=== PATIENT | male | born 1960 | race Caucasian/White ===

== ENCOUNTER → 2018-01-01 | Outpatient (CLI) | payer BC | END | disposition home or self-care (01) | LOC: LABWHC1 06:35 | PROVIDERS: ATTEND Surgery Plastic and Reconstructive Surgery | DX: I10 Essential (primary) hypertension (principal) | CPT/HCPCS: 36415; 93005 ==

== ENCOUNTER → 2018-01-24 | Day surgery (SDC) | payer BC ==
[2018-01-14 15:13] VITALS: BMI 27.7
[~2018-01-24] MED LIST: BUPIVACAIN-EPI 0.5%-1:200,000 30 ML VIAL SQ ONE; DEXAMETHASONE SOD PHOSPHATE 10 MG/ML 1 ML VIAL IV ONE; ENALAPRILAT 1.25 MG/ML 1 ML VIAL IVP ONE; ESMOLOL 100 MG/10 ML VIAL ONE; GLYCOPYRROLATE 0.2 MG/ML 2 ML VIAL ONE; HEPARIN SODIUM,PORCINE 5,000 UNIT/ML 1 ML VIAL SQ ONE; HYDROcodone/APAP 5-325MG 1 EACH TAB PO ONE; HYDROmorphone (PF) 1 MG/ML ONE; LACTATED RINGERS 1,000 ML IV ONE; LACTATED RINGERS 1,000 ML IV SCH; LIDOCAINE 1% 20 ML VIAL (10MG/ML) FOR IV START INTRADERMA ONE; LIDOCAINE 1% INJ 10MG/ML (20 ML MDV) ONE; MIDAZOLAM 2 MG/2 ML VIAL IV PRN; MIDAZOLAM 2 MG/2 ML VIAL ONE; NEOSTIGMINE 1 MG/ML 10 ML VIAL ONE; PROPOFOL 10 MG/ML 20 ML VIAL IV ONE; ROCURONIUM BROMIDE 10 MG/ML 10 ML VIAL IV ONE; SCOPOLAMINE 1.5MG/72HR PATCH TRANSDERM ONE; SODIUM CHLORIDE 0.9% 1,000 ML IV ONE; SUCCINYLCHOLINE CHLORIDE 100 MG/5 ML SYR IV ONE; ceFAZolin IN SWFI 2 GM/20 ML SYRINGE IVP ONE; fentaNYL (PF) 50 MCG/ML 2 ML AMP IV PRN; fentaNYL (PF) 50 MCG/ML 2 ML AMP ONE
[2018-01-24 06:15] VITALS: TEMP 98.2
--- NOTE | 2018-01-24 06:21 | P.GSHP ---
History of Present Illness H&P Date: 01/24/18 CHIEF COMPLAINT: Ventral hernia HISTORY OF PRESENT ILLNESS: The patient is a 57-year-old male who presents with a history of swelling and pain along the abdomen from a hernia. Now he presents for surgical intervention. PAST MEDICAL HISTORY: Please see list. PAST SURGICAL HISTORY: Please see list. MEDICATIONS: Please see list. ALLERGIES: Please see list. SOCIAL HISTORY: No illicit drug use FAMILY HISTORY: No reports of Crohn disease or ulcerative colitis. REVIEW OF ORGAN SYSTEMS: CONSTITUTIONAL: No reports of fevers or chills. No reports of weight loss despite prior attempts. GI: Denies any blood in stools or constipation. PHYSICAL EXAM: VITAL SIGNS: Stable GENERAL: Well-developed pleasant in no acute distress. HEENT: No scleral icterus. Extraocular movements grossly intact. Moist buccal mucosa. NECK: Supple without lymphadenopathy. CHEST: Unlabored respirations. Equal bilateral excursions. CARDIOVASCULAR: Regular rate and rhythm. Distal 2+ pulses. ABDOMEN: Soft, nondistended. Palpable defect of the abdomen. No peritoneal signs. MUSCULOSKELETAL: No clubbing, cyanosis, or edema. ASSESSMENT: 1. Umbilical ventral hernia PLAN: 1. Recommend proceeding with a robotic ventral hernia repair with mesh. 2. Benefits and risks of surgical intervention was discussed including possibility of open technique. 3. DVT prophylaxis. 4. Antibiotic prophylaxis. Past Medical History Past Medical History: Hyperlipidemia, Hypertension History of Any Multi-Drug Resistant Organisms: None Reported Past Surgical History: Orthopedic Surgery Additional Past Surgical History / Comment(s): bilateral hand surgery. back surgery Past Anesthesia/Blood Transfusion Reactions: No Reported Reaction Past Psychological History: No Psychological Hx Reported Smoking Status: Never smoker Past Alcohol Use History: Occasional Past Drug Use History: None Reported - Past Family History Father Family Medical History: Coronary Artery Disease (CAD), Myocardial Infarction ([place] ) Medications and Allergies Home Medications Medication Instructions Recorded Confirmed Type Hydrocodone/Acetaminophen [[place] 1 each PO Q4HR PRN #30 tab 07/14/14 01/24/18 Rx 5-325] Atorvastatin [Lipitor] 20 mg PO DAILY 01/14/18 01/24/18 History Losartan/Hydrochlorothiazide 1 each PO DAILY 01/14/18 01/24/18 History [Losartan-Hctz 100-25 mg Tab] amLODIPine [Norvasc] 5 mg PO DAILY 01/14/18 01/24/18 History Allergies Allergy/AdvReac Type Severity Reaction Status Date / Time egg Allergy Unknown Verified 01/24/18 06:12 Penicillins Allergy Unknown Verified 01/24/18 06:12 Surgical - Exam Vital Signs Temp Pulse Resp BP Pulse Ox 98.2 F 85 16 152/93 97 01/24/18 06:13 01/24/18 06:13 01/24/18 06:13 01/24/18 06:13 01/24/18 06:13
[2018-01-24] MEDS: ONDANSETRON 4 MG/2 ML VIAL IVP ONE ×2 (06:38→09:19)
--- NOTE | 2018-01-24 08:32 | P.OP ---
Date of Procedure: 01/24/18 Description of Procedure: SURGEON: SUNDEEP DOSS MD PREOPERATIVE DIAGNOSES: 1. Initial umbilical hernia 2. Hypertension 3. Hyperlipidemia POSTOPERATIVE DIAGNOSES: 1. Initial umbilical incarcerated, 2 cm 2. Hypertension 3. Hyperlipidemia OPERATION: 1. Robotic-assisted da Dov Xi laparoscopic repair of initial incarcerated ventral hernia 2 cm without mesh ANESTHESIA: General with local ESTIMATED BLOOD LOSS: 5 mL. SPECIMENS: None. COMPLICATIONS: None. INDICATIONS: The patient is a 57-year-old male who presents with initial umbilical hernia. Surgical intervention with laparoscopic versus robotic and open techniques were reviewed. Possibility of mesh placement was described. Benefits and risks were thoroughly described. Informed consent was obtained. DESCRIPTION OF PROCEDURE: The patient was brought into the operating room and laid in supine position. After general induction, the abdomen had been prepped and draped in standard sterile fashion. Ioban draping was also placed. Prior to incision, a timeout protocol was confirmed with surgical team regarding the patient's name including procedures to be performed. The robot was primed prior to the procedure. A field block using local anesthetic was placed along hernia site including the proposed port sites. Initial incision was made with an #11 blade along the left upper quadrant. A 0 degree 5 mm laparoscopic trocar entry was performed. Diagnostic laparoscopy demonstrated an incarcerated ventral hernia of the epigastrium. A 8 mm trocar was placed along the left lateral abdominal wall approximately 10 cm lateral to the lower midline. An 8 mm port was placed along the left lower quadrant under direct localization. The 5-mm port was exchanged for an 8 mm robotic port. Placements of the ports were 12 cm from the target anatomy and 8 cm apart. The da Dov Xi robot was previously primed, prepped and draped then docked along the left side of the patient. I then sat at the robot Da Dov Xi console where working arms of the robot were scissors, needle stake driver, and graspers placed by the entry level marketing assistant. Fascial defect of 2 cm was identified. Attention was brought to the umbilicus where an incarcerated ventral hernia was identified also containing fat. The incarcerated contents was reduced as the peritoneal fat was cleaned from the abdominal wall. Next, hemostasis was checked with cautery. The hernia defect of 2-cm was oversewn using #1 Stratafix with fascial imbrication 3. A final endoscopic imaging was obtained. All instruments and pneumoperitoneum were evacuated from the abdominal cavity. The da Dov Xi robot was undocked from the patient. I re-scrubbed into the case for closure of incisions. The incisions were reapproximated using 4-0 Monocryl in an interrupted subcuticular fashion. Exofin liquid glue was applied to the skin after cleansing the skin with normal saline and dilute hydrogen peroxide. An abdominal binder was placed. At the end of the procedure, needle, sponge, and instrument count had been verified correct by surgical appliances salesperson. The patient was taken to the postanesthesia care unit in stable condition. FINDINGS: 1. Intial incarcerated umbilical hernia epigastrium, 2cm Plan - Discharge Summary Discharge Rx Participant: Yes New Discharge Prescriptions: No Action Hydrocodone/Acetaminophen [[place] 5-325] 1 each PO Q4HR PRN #30 tab PRN Reason: Pain amLODIPine [Norvasc] 5 mg PO DAILY Losartan/Hydrochlorothiazide [Losartan-Hctz 100-25 mg Tab] 1 each PO DAILY Atorvastatin [Lipitor] 20 mg PO DAILY Discharge Medication List Hydrocodone/Acetaminophen [[place] 5-325] 1 each PO Q4HR PRN #30 tab 07/14/14 [Rx] Atorvastatin [Lipitor] 20 mg PO DAILY 01/14/18 [History] Losartan/Hydrochlorothiazide [Losartan-Hctz 100-25 mg Tab] 1 each PO DAILY 01/14 [History] amLODIPine [Norvasc] 5 mg PO DAILY 01/14/18 [History]
[2018-01-24] MEDS: HYDROmorphone 1 MG/ML 1 ML SYRINGE IVP ONE ×4 (08:51→09:15)
[2018-01-24 11:36] VITALS: BP 124/74; PULSE 71; RESP 18
== END | disposition home or self-care (01) ==
LOC: OR 05:34
PROVIDERS: ATTEND Surgery Plastic and Reconstructive Surgery
DX: K42.0 Umbilical hernia with obstruction, without gangrene (principal); I11.9 Hypertensive heart disease without heart failure; E78.5 Hyperlipidemia, unspecified; Z82.49 Family history of ischemic heart disease and other diseases of the circulatory system; Z79.899 Other long term (current) drug therapy; Z88.0 Allergy status to penicillin; Z91.012 Allergy to eggs
CPT/HCPCS: 49653; J2250; J1644; J1100; J2710; J2405; J2001; J3010; J1170; J0330; J2704; J0690

== ENCOUNTER 2019-09-07 09:30 | Inpatient (IN) | payer BC, OTHER ==
[2019-09-07] MEDS ORDERED: HYDROcodone/APAP 5-325MG 1 EACH TAB PO PRN (11:37)
[2019-09-07] MEDS ORDERED: IBUPROFEN 600 MG TAB PO PRN (11:37)
--- NOTE | 2019-09-07 14:47 | P.HPOR ---
<Julio César Myrick - Last Filed: 09/07/19 14:40> History of Present Illness H&P Date: 09/07/19 Chief Complaint: Thoracic back pain and left shoulder pain status post fall down steps Patient is a pleasant 59-year-old male who is seen and examined at bedside for further evaluation regards to his known T7 and T8 compression fracture deformities. Patient states he cannot use the restroom and approximately 5:00 this morning when he was somewhat disoriented as he was not well awake and fell down his steps while attempting to go back to his bedroom. He states he tried to grab the railing and he fell landing on his thoracic spine. He has had some left shoulder pain since that time. He has a small abrasion to his left hand as well. He is taking [facility] for further evaluation. Imaging their reports compression fracture deformities at T7 and T8. He was transferred to [facility] for further treatment and evaluation. Patient states imaging taken at his left shoulder did not show evidence of fracture or dislocation. He is having difficulty with active range of motion of his left shoulder. He is able to perform all other regular range of motion of left upper extremity without difficulty. He has significant pain in his thoracic spine. He has remained in bed since his transfer in to [facility]. He states his thoracic pain is exacerbated with any movement of his thoracic spine. He denies any lower extremity weakness or radiculopathy bilaterally. He has active full range of motion bilateral lower extremities. Patient does admit to lumbar laminectomy years ago. Imaging has not yet been loaded into the synapse system from [facility]. Patient is having some difficulty with pain control. Past Medical History Past Medical History: Hyperlipidemia, Hypertension History of Any Multi-Drug Resistant Organisms: None Reported Past Surgical History: Orthopedic Surgery Additional Past Surgical History / Comment(s): bilateral hand surgery. back surgery Past Anesthesia/Blood Transfusion Reactions: No Reported Reaction Past Psychological History: No Psychological Hx Reported Smoking Status: Never smoker Past Alcohol Use History: Occasional Past Drug Use History: None Reported - Past Family History Father Family Medical History: Coronary Artery Disease (CAD), Myocardial Infarction ([place]) Medications and Allergies Home Medications Medication Instructions Recorded Confirmed Type Losartan/Hydrochlorothiazide 0.5 tab PO DAILY 01/14/18 09/07/19 History [Losartan-Hctz 100-25 mg Tab] Loratadine-Pseudoeph 10-240 mg 1 tab PO DAILY PRN 09/07/19 09/07/19 History [Claritin-D 24 Hour] Allergies Allergy/AdvReac Type Severity Reaction Status Date / Time egg Allergy Unknown Verified 09/07/19 12:00 Penicillins Allergy Unknown Verified 09/07/19 12:00 Physical Examination Physical exam: Patient is awake, alert, and oriented 3 Vital signs stable Good chest excursion with deep inspiration and expiration Examination of thoracic and lumbar spine reveals skin is intact with no abrasions, lacerations, or bruises; no erythema, purulence or signs of infection Significant pain with palpation along the midline of the mid to lower thoracic spine Evidence of a what feels to be a palpable step-off deformity at the mid thoracic spine Dorsiflexion, plantarflexion, and extensor hallucis longus positive sustained bilaterally Lower extremity strength 5/5 bilaterally Straight leg test negative bilateral lower extremities Negative Lasegue's test bilaterally No signs or symptoms of DVT; no calf pain No pain with internal and external rotation of the hips bilaterally Neurovascularly intact Evidence of a small wound/abrasion over the metacarpal phalangeal joint of the posterior pinky finger Inspection of the left shoulder does not show any significant erythema, bruising, laceration, swelling, or obvious sign of infection at the left shoulder Significant difficulty with active range of motion of left shoulder Pain with palpation over the anterior and posterior aspects of the left shoulder Full active range of motion of the left elbow with flexion and extension without difficulty Assessment and Plan Assessment: Assessment: Acute traumatic T7 and T8 compression fracture deformities Status post fall Intractable thoracic back pain Left shoulder pain Left shoulder weakness and difficulty with range of motion of the left shoulder Small wound/abrasion over the left metacarpal phalangeal joint of the left pinky finger (1) T8 vertebral fracture Current Visit: Yes Status: Acute Code(s): S22.069A - UNSP FRACTURE OF T7-T8 VERTEBRA, INIT FOR CLOS FX SNOMED Code(s): 126062624 (2) T7 vertebral fracture Current Visit: Yes Status: Acute Code(s): S22.069A - UNSP FRACTURE OF T7-T8 VERTEBRA, INIT FOR CLOS FX SNOMED Code(s): 193130618 (3) Status post fall Current Visit: Yes Status: Acute Code(s): Z91.81 - HISTORY OF FALLING SNOMED Code(s): 961481506 (4) Left shoulder pain Current Visit: Yes Status: Acute Code(s): M25.512 - PAIN IN LEFT SHOULDER SNOMED Code(s): 12869493 (5) Abrasion of left hand Current Visit: Yes Status: Acute Code(s): S60.512A - ABRASION OF LEFT HAND, INITIAL ENCOUNTER SNOMED Code(s): 626123889 (6) Weakness of shoulder Current Visit: Yes Status: Acute Code(s): R29.898 - OTH SYMPTOMS AND SIGNS INVOLVING THE MUSCULOSKELETAL SYSTEM SNOMED Code(s): 967198687 Plan: Plan: 1. After reviewing of imaging, physical examination the patient, and further discussion with the patient, will currently planned to continue with conservative treatment at this time. At this time we'll plan for bracing. A prescription has been written and provided to case management for a [place] TLSO brace. Once this brace is delivered and fitted appropriately, patient should wear this brace while sitting upright at greater than 45, during increase activities, during ambulation. Brace does not have to worn while lying in bed or while bathing. Following fitting of this brace, patient is clear for discharge from an orthopedic spine standpoint. We will continue to monitor his level of pain control and once patient's pain is better controlled we'll plan for discharge home. Following discharge, patient may follow-up with Julio César Myrick PA-C or Dr. Brandon Ann at [facility]. We will continue following the patient closely. 2. Continue medications for pain control as prescribed. [place] has been increased to [place] 5 mg/325 mg 1-2 tabs every 4 hours as needed for pain. 3. We are also currently planning to have imaging uploaded in the [employer] system here at [facility] for further evaluation. 4. We will also plan to obtain x-rays of the thoracic spine in an upright position once the patient's [place] TLSO brace is delivered and fitted properly. 5. Consultation has been placed with Dr. Perez for medical management during his admission Time with Patient: Greater than 30 (Including obtaining history, physical examination, reviewing of imaging, and dictation.) <Maria Luisa Ann - Last Filed: 09/07/19 17:43> Physical Examination Osteopathic Statement: *. No significant issues noted on an osteopathic structural exam other than those noted in the History and Physical/Consult. Assessment and Plan Plan: I have reviewed the case above and reviewed the dictation above. The computed tomography scan from [facility] is still not available for viewing. Jason Terry Huron. The house staff is working on making the films available for us to review. We'll have further discussion based on those images when we were able to see them.
[2019-09-07] MEDS ORDERED: KETOROLAC 30 MG/ML 1 ML VIAL IVP PRN (15:42)
[2019-09-07] MEDS ORDERED: KETOROLAC 30 MG/ML 1 ML VIAL IVP STA (15:42)
[2019-09-07] MEDS: HYDROcodone/APAP 5-325MG 1 EACH TAB PO PRN ×2 (17:38→21:58)
[2019-09-07] MEDS ORDERED: HYDROmorphone 0.5 MG/0.5 ML SYRINGE IVP PRN (17:43)
[2019-09-07] MEDS ORDERED: HYDROmorphone 1 MG/ML 1 ML SYRINGE IVP PRN (17:43)
[2019-09-07] MEDS ORDERED: LORATADINE-PSEUDOEPH 5-120 MG 1 EACH TAB.ER.12H PO PRN (17:45)
--- NOTE | 2019-09-07 22:58 | P.CONS ---
History of Present Illness - Reason for Consult Consult date: 09/07/19 HTN, HLD - Chief Complaint Traumatic T7-T8 fracture - History of Present Illness Patient is a 59-year-old male with a known history of hypertension, hyperlipidemia was initially presented to outpatient Hospital facility status post fall. Patient says that he woke up around 5 AM this morning and was turning towards the bathroom and stepped down on the staircase. Patient fell on the steps and rolled down to the floor. Patient tried to grab the railing while he was falling. since then he has been having he has been having upper back pain and left shoulder pain and unable to move his shoulder and unable to walk by himself. Patient presented to outside hospital facility where he had CT of the spine showed compression fractures of T7 and T8. Patient was transferred to [facility] for further evaluation by orthopedic surgery. Patient is still complaining of left shoulder pain and unable to get up from the bed. Requesting pain medications. Otherwise patient denied any complaints of chest pain or shortness of breath. Patient says that he did have difficulty in breathing after he fell down from states but later improved now. No recent illnesses. Denied any dysuria or hematuria. No fever no chills. No cough or sputum production. Denied any complaints of abdominal pain. Review of Systems Constitutional: Patient denies any fever or chills . No generalized weakness or weight loss. Abdomen: Patient denied nausea vomiting and diarrhea and abdominal pain. Cardiovascular: Patient denies any chest pain or short of breath no palpitations. Respiratory: patient denied any cough is from production. No shortness of breath Neurologic: Patient denied any numbness or tingling headache. Musculoskeletal: Patient denies any complaints of joint swelling or deformity. Patient does have left shoulder pain and upper back pain Skin: Negative Psychiatric: Negative Endocrine: No heat or cold intolerance. No recent weight gain. Genitourinary: No dysuria or hematuria. All other 14 point ROS negative except the above Past Medical History Past Medical History: Hyperlipidemia, Hypertension History of Any Multi-Drug Resistant Organisms: None Reported Past Surgical History: Orthopedic Surgery Additional Past Surgical History / Comment(s): bilateral hand surgery. back surgery Past Anesthesia/Blood Transfusion Reactions: No Reported Reaction Past Psychological History: No Psychological Hx Reported Smoking Status: Never smoker Past Alcohol Use History: Occasional Past Drug Use History: None Reported - Past Family History Father Family Medical History: Coronary Artery Disease (CAD), Myocardial Infarction ( [place]) Medications and Allergies Home Medications Medication Instructions Recorded Confirmed Type Losartan/Hydrochlorothiazide 0.5 tab PO DAILY 01/14/18 09/07/19 History [Losartan-Hctz 100-25 mg Tab] Loratadine-Pseudoeph 10-240 mg 1 tab PO DAILY PRN 09/07/19 09/07/19 History [Claritin-D 24 Hour] Allergies Allergy/AdvReac Type Severity Reaction Status Date / Time egg Allergy Unknown Verified 09/07/19 12:00 Penicillins Allergy Unknown Verified 09/07/19 12:00 Physical Exam Vitals: Vital Signs Temp Pulse Resp BP Pulse Ox 09/07/19 11:12 98.1 F 97 16 141/89 96 Intake and Output 09/06/19 09/07/19 09/07/19 22:59 06:59 14:59 Other: Weight 91.138 kg PHYSICAL EXAMINATION: Patient is lying in the bed comfortably, no acute distress, awake alert and oriented.. HEENT: Normocephalic. Neck is supple. Pupils reactive. Nostrils clear. Oral cavity is moist. Ears reveal no drainage. Neck reveals no JVD, carotid bruits, or thyromegaly. CHEST EXAMINATION: Trachea is central. Symmetrical expansion. Bibasilar diminished air entry. Lung webb clear to auscultation and percussion. CARDIAC: Normal S1, S2 with no gallops. No murmurs ABDOMEN: Soft. Bowel sounds normal. No organomegaly. No abdominal bruits. Extremities: reveal no edema. No clubbing or cyanosis Neurologically awake, alert, oriented x3 with well-coordinated movements. No focal deficits noted Skin: No rash or skin lesions. Psychiatric: Coperative. Nonsuicidal Musculoskeletal: No joint swelling or deformity. There is decreased range of motion of left shoulder and patient is unable to get up from the bed. Upper back pain and paraspinal spasms... Assessment and Plan Assessment: Acute compression fracture of T7 and T8 status post mechanical fall. Left shoulder pain and decreased range of motion. Thoracic back pain Hypertension controlled now Hyperlipidemia DVT prophylaxis Plan: Patient will be continued on pain medications the form of [place] and was given a dose of IV Toradol. Blood pressure is controlled now. Patient does take losartan/hydrochlorothiazide at home which will be on hold. Orthopedic surgery is on board. We will continue to follow with you and further recommendations based on the clinical course. Follow-up CBC and BMP. Thank you for your consult. Time with Patient: Greater than 30
[2019-09-08] MEDS: HYDROcodone/APAP 5-325MG 1 EACH TAB PO PRN ×3 (02:34→11:45)
[2019-09-08 07:27] LABS: Basophils # (A) 0.1 k/uL (0-0.2); Basophils % (A) 1 %; Eosinophils # (A) 0.1 k/uL (0-0.7); Eosinophils % (A) 1 %; HCT 42.1 % (39.0-53.0); HGB 13.3 gm/dL (13.0-17.5); Lymphocytes # (A) 1.9 k/uL (1.0-4.8); Lymphocytes % (A) 19 %; MCH 30.4 pg (25.0-35.0); MCHC 31.5 g/dL (31.0-37.0); MCV 96.3 fL (80.0-100.0); Mean Platelet Volume 7.1; Monocytes # (A) 0.6 k/uL (0-1.0); Monocytes % (A) 6 %; Neutrophils # (A) 7.3 k/uL (1.3-7.7); Neutrophils % (A) 73 %; Platelet Count 239 k/uL (150-450); RBC 4.37 m/uL (4.30-5.90); WBC 10.1 k/uL (3.8-10.6)
[2019-09-08 07:43] LABS: African American GFR (CKD) >90 (>60 ml/min/1.73 sqM); Anion Gap 8 mmol/L; Blood Urea Nitrogen 16 mg/dL (9-20); Calcium 8.9 mg/dL (8.4-10.2); Carbon Dioxide 26 mmol/L (22-30); Chloride 103 mmol/L (98-107); Glucose 104 mg/dL (74-99); Non-African American GFR(CKD) >90 (>60 ml/min/1.73 sqM); Potassium 4.3 mmol/L (3.5-5.1); Sodium 137 mmol/L (137-145)
[2019-09-08 08:46] VITALS: BP 158/100; PULSE 84; RESP 18; TEMP 97.8
[2019-09-08] MEDS ORDERED: LOSARTAN-HCTZ 50-12.5 MG 1 EACH TAB PO SCH (09:00)
--- NOTE | 2019-09-08 10:40 | XR ---
EXAMINATION TYPE: XR thoracic spine complete DATE OF EXAM: 09/08/2019 CLINICAL HISTORY: Back pain with T7 and T8 fractures. TECHNIQUE: Frontal, lateral, and swimmer's view of thoracic spine are obtained. COMPARISON: Outside CT from yesterday. FINDINGS: There is persistent dextroconvex scoliosis centered roughly T7-T8 level. There are acute co mminuted fractures involving the T6-T8 vertebra with most prominent fracture through the T7 vertebra vertically causing mild to moderate height loss even more prominent than identified on CT. No signifi cant posterior retropulsion identified on plain films which correlates with CT. Incidental moderate spurring and disc space narrowing C4-C5 through C6-C7 levels. Visualized ribs are grossly intact. IMPRESSION: Acute comminuted fractures involving the T6 through the T8 vertebra with mild to moderate height loss T7 vertebra. No significant posterior retropulsion seen.
--- NOTE | 2019-09-08 12:42 | P.DS ---
Providers Date of admission: 09/07/19 11:04 Expected date of discharge: 09/08/19 Attending physician: Maria Luisa Ann Consults: 09/07/19 11:37 Consult Physician Routine Consulting Provider: Jose Perez Consult Reason/Comments: medical management Do you want consulting provider notified?: Yes Primary care physician: Vick Givens - Discharge Diagnosis(es) (1) T8 vertebral fracture Current Visit: Yes Status: Acute (2) T7 vertebral fracture Current Visit: Yes Status: Acute (3) Status post fall Current Visit: Yes Status: Acute (4) Left shoulder pain Current Visit: Yes Status: Acute (5) Abrasion of left hand Current Visit: Yes Status: Acute (6) Weakness of shoulder Current Visit: Yes Status: Acute (7) Hyperlipidemia Current Visit: Yes Status: Acute (8) Hypertension Current Visit: Yes Status: Acute Hospital Course: This is a pleasant 59-year-old male who presented with acute traumatic T7 and T8 fractures who was transferred in from [facility]. He was experiencing severe debilitating thoracic back pain at the time of presentation. He has been fitted with a [place] TLSO brace. Since that time his pain has been better controlled. He continues to deny lower extremity weakness or radiculopathy bilaterally. X-rays of the thoracic spine were taken with his brace intact which do confirm comminuted fractures at T7 and T8 and may be some involvement of T6. He does continue to have some pain and weakness at the left shoulder. He states he does not feel he needs a sling or further evaluation of the shoulder at this time. He states x-ray imaging taken of the left shoulder at length her [facility] was negative for significant findings. He feels he is ready for discharge home today. He is eating and voiding without difficulty. Condition on day of discharge stable. Patient will be discharged home. Patient currently denies any nausea, vomiting, fever, or chills. We discussed he should continue to wear his [place] TLSO brace for comfort and support while sitting upright at greater than 45, during increase activities, and while ambulating; patient does not have to wear the brace while lying in bed or bathing. Patient should avoid excessive bending, twisting, and lifting; no lifting greater than 10 pounds. Patient will continue conservative treatment regards to his left shoulder. He should avoid excessive lifting and activities of the left shoulder. We discussed that symptoms are not improving at this follow-up appointment with me plan to obtain further imaging of the left shoulder at that time. He may continue with dressing changes as needed over the wound to the left metacarpal phalangeal joint of the pinky. Patient should refrain from driving until at least after their first follow-up appointment in the office. MAPS has been reviewed today, 09/08/2019, with an Overall Overdose Risk Score of 340. An "Opiod Start Talking" Form has been signed by the patient and myself in place in the patient's chart. A prescription has been written for Mikado 5 mg/325 mg 1-2 tabs every 6 hours as needed for pain, dispensed #56. Patient may resume other previously prescribed home medications. Physical exam: Patient is awake, alert, and oriented 3 Vital signs stable Good chest excursion with deep inspiration and expiration Examination of thoracic and lumbar spine reveals skin is intact with no abrasions, lacerations, or bruises; no erythema, purulence or signs of infection Significant pain with palpation along the midline of the mid to lower thoracic spine Sonal TLSO brace intact Evidence of a what feels to be a palpable step-off deformity at the mid thoracic spine Dorsiflexion, plantarflexion, and extensor hallucis longus positive sustained bilaterally Lower extremity strength 5/5 bilaterally Straight leg test negative bilateral lower extremities Negative Lasegue's test bilaterally No signs or symptoms of DVT; no calf pain No pain with internal and external rotation of the hips bilaterally Neurovascularly intact Evidence of a small wound/abrasion over the metacarpal phalangeal joint of the posterior pinky finger Inspection of the left shoulder does not show any significant erythema, bruising, laceration, swelling, or obvious sign of infection at the left shoulder Significant difficulty with active range of motion of left shoulder Pain with palpation over the anterior and posterior aspects of the left shoulder Full active range of motion of the left elbow with flexion and extension without difficulty Patient Condition at Discharge: Stable Plan - Discharge Summary Discharge Rx Participant: Yes New Discharge Prescriptions: New Hydrocodone/Acetaminophen [Mikado 5-325] 1 - 2 each PO Q6HR PRN #56 tab PRN Reason: Pain Continue Losartan/Hydrochlorothiazide [Losartan-Hctz 100-25 mg Tab] 0.5 tab PO DAILY Loratadine-Pseudoeph 10-240 mg [Claritin-D 24 Hour] 1 tab PO DAILY PRN PRN Reason: Cold Symptoms Discharge Medication List Losartan/Hydrochlorothiazide [Losartan-Hctz 100-25 mg Tab] 0.5 tab PO DAILY 01/14/18 [History] Loratadine-Pseudoeph 10-240 mg [Claritin-D 24 Hour] 1 tab PO DAILY PRN 09/07/19 [History] Hydrocodone/Acetaminophen [Mikado 5-325] 1 - 2 each PO Q6HR PRN #56 tab 09/08/19 [Rx] Follow up Appointment(s)/Referral(s): Vick Givens MD [Primary Care Provider] - 09/15/19 12:30 pm (With Stacy) Julio César Myrick PAC [PHYSICIAN PROJECT DIRECTOR] - 09/18/19 11:00 am (Patient may follow-up with Julio César Myrick PA-C or Dr. Brandon Ann at [facility] in 2-3 weeks following discharge. ) Beulah Bailey [NON-STAFF] - Activity/Diet/Wound Care/Special Instructions: Jodi will deliver Sonal TLSO brace to bedside on 09/07/2019 1. Patient may wear [place] TLSO brace for comfort and support while sitting upright at greater than 45, while working with therapy, and while ambulating; patient does not have to wear the brace while lying in bed or bathing 2. Patient should avoid excessive bending, twisting, and lifting; no lifting g reater than 10 pounds 3. Patient should avoid excessive lifting and activities with the left shoulder 4. Continue with dressing changes as needed over the wound to the left metacarpal phalangeal joint of the pinky Discharge Disposition: HOME SELF-CARE
== END 2019-09-08 14:01 | disposition home or self-care (01) | DRG 552 ==
LOC: 4SSUR 11:04
PROVIDERS: ADMIT Orthopaedic Surgery Orthopaedic Surgery of the Spine; ATTEND Orthopaedic Surgery Orthopaedic Surgery of the Spine
DX: S22.068A Other fracture of T7-T8 thoracic vertebra, initial encounter for closed fracture (principal); W10.9XXA Fall (on) (from) unspecified stairs and steps, initial encounter; E78.5 Hyperlipidemia, unspecified; S60.512A Abrasion of left hand, initial encounter; R53.1 Weakness; M25.512 Pain in left shoulder; I10 Essential (primary) hypertension; Z98.890 Other specified postprocedural states; Z82.49 Family history of ischemic heart disease and other diseases of the circulatory system; Z88.0 Allergy status to penicillin; Z91.012 Allergy to eggs
CPT/HCPCS: 72072; 80048; 85025

== ENCOUNTER → 2020-11-01 | Outpatient (CLI) | payer MEDICARE ==
--- NOTE | 2020-11-02 07:17 | US ---
EXAMINATION TYPE: US prostate transrectal DATE OF EXAM: 11/01/2020 COMPARISON: NONE CLINICAL HISTORY: R97.20 elevated psa. This examination was performed using the transrectal probe. EXAM MEASUREMENTS: Gland Size: 4.6 x 2.4 x 4.7cm Volume: 27.4 Predicted PSA: 3.3 Actual PSA (if available):6.0 No obvious mass evident by ultrasound. IMPRESSION: No distinct lesions seen. Discordant actual PSA with predicted PSA. Consider biopsy if f elt clinically indicated. Predicted PSA = volume x 0.12 ng/ml Calculated Volume = 0.5236 x L x W x H
== END | disposition home or self-care (01) ==
LOC: RADUSWWP 06:54
PROVIDERS: ATTEND Family Medicine
DX: R97.20 Elevated prostate specific antigen [PSA] (principal)
CPT/HCPCS: 76872